=== PATIENT | male | born 1975 | race Caucasian/White ===

== ENCOUNTER 2017-07-11 18:38 | Emergency (ER) | payer SELFPAY ==
[2017-07-11 18:42] VITALS: BP 139/91; BMI 19.6
--- NOTE | 2017-07-11 19:29 | DR.GENAD ---
HPI - PCP Primary Care Physician: SUZIE - Complaint/Symptoms Chief Complaint Doctors Comments: History as stated. Chief Complaint:: FEELS LIKE THERE IS SOMETHING IN MY EAR. "FEELS LIKE FLUID AND WEIRD FEELING" - Source History Provided: Patient - Mode of Arrival Mode of Arrival: Ambulatory - Timing Onset of Chief Complaint: 07/09/17 PMH - PMH Past Medical History: No Past Medical History: GERD Past Surgical History: Yes Surgical History: Ortho Surgery - Family History History of Family Medical Conditions: Yes Family Medical History: Diabetes Mellitus, Cancer, Coronary Artery Disease, Hypertension - Social History Does patient currently use any type of tobacco product: Yes Have you used tobacco products in the last 12 months: Yes Type of Tobacco Use: Cigarettes Does any household member use tobacco: No Alcohol Use: None Do you use any recreational Drugs:: Yes (WEED) Lives With: Alone Lives Where: Home - infectious screening In the last 2 months have you had wt loss of >10#?: NO Have you had fever, night sweats or hemotysis?: No Have you traveled outside the country in the last 6 months?: No Isolation: Standard ROS - Review of Systems Eyes: No Symptoms Reported ENTM: See HPI Respiratoy: No Symptoms Reported Cardiovascular: No Symptoms Reported Gastrointestinal/Abdominal: No Symptoms Reported Genitourinary: No Symptoms Reported Neurological: No Symptoms Reported Musculoskeletal: No Symptoms Reported Integumentary: No Symptoms Reported Hematologic/Lymphatic: No Symptoms Reported Endocrine: No Symptoms Reported Psychiatric: No Symptoms Reported All Other Systems: Reviewed and Negative PE - Vital Signs Vitals: Temperature 99.1 F Pulse Rate 98 Respiratory Rate 20 Blood Pressure [Right Arm] 132/89 Blood Pressure [Left Arm] 136/72 Blood Pressure 139/91 O2 Sat by Pulse Oximetry 99 - General Limitations: No Limitations General Appearance: Alert, In No Apparent Distress - Head Head Exam: Normal Inspection, Atraumatic - Eyes Eye exam: Normal Appearance, PERRL, EOMI - ENT ENT Exam: Normal Exam External Ear Exam: Normal External Inspection TM/Canal Exam: Bilateral Normal Nose Exam: Normal Nose Exam Mouth Exam: Normal Inspection Throat Exam: Normal Inspection - Neck Neck Exam: Normal Inspection, Full ROM - Chest Chest Inspection: Normal Inspection - Respiratory Respiratory Exam: Normal Lung Sounds Bilat Respiratory Exam: Bilateral Clear to Auscultation - Cardiovascular Cardiovascular Exam: Regular Rate, Normal Rhythm - Abdominal Exam Abdominal Exam: Normal Inspection, Normal Bowel Sounds Abdominal Tenderness: negative: RUQ, RLQ, LUQ, LLQ, Epigastrium, Suprapubic, Diffuse, Mild, Moderate, Severe, Other - Extremities Extremities Exam: Normal Inspection, Full ROM - Back Back Exam: Normal Inspection, Full ROM - Neurologic Neurological Exam: Alert, Oriented X3, CN II-XII Intact - Psychiatric Psychiatric Exam: Normal Affect, Normal Mood - Skin Skin Exam: Warm, Dry - Diagnosis Discharge Problem: Negative otitis media/Externa - Discharge Plan Condition: Stable - Follow ups/Referrals Follow ups/Referrals: Hayden Kinsey [Primary Care Provider] - 3 days - Instructions
== END 2017-07-11 19:35 | disposition home or self-care (01) ==
LOC: ER 18:44
DX: H92.09 Otalgia, unspecified ear (principal)
CPT/HCPCS: 99281; 99282

== ENCOUNTER 2017-07-19 11:05 | Emergency (ER) | payer SELFPAY ==
[2017-07-19 11:10] VITALS: BP 127/76; BMI 19.6
--- NOTE | 2017-07-19 11:36 | DR.GENAD ---
HPI - PCP Primary Care Physician: CINDY - Complaint/Symptoms Chief Complaint Doctors Comments: History as stated. Patient states that he thinks his mom had a device implanted so that she can track him. She has been trying to get to go to rehab for some times now. He has been using methamphetamine for 4 years. He denies being homocidal or suicidal. He stated that he needed to get to the bottom of this.and [facility]. Chief Complaint:: PT. STATES "I'VE GOT A BUG IN MY ASS AND I'VE GOT TO GET IT OUT." "IT'S A TRACKING DEVICE. IT WAS IN MY STOMACH." PT. STATES HE SWALLOWED IT SUPPOSEDELY A WEEK AGO. HE WAS TOLD IT WAS A GOLD MARBLE PER HIS FRIENDS. HE STATES IT HAD TO BE IN HIS FOOD AND HIS MAMA DONE IT. - Source History Provided: Patient - Mode of Arrival Mode of Arrival: Ambulatory - Timing Onset of Chief Complaint: 07/18/17 PMH - PMH Past Medical History: Yes Past Medical History: GERD Past Surgical History: Yes Surgical History: Ortho Surgery - Family History History of Family Medical Conditions: Yes Family Medical History: Diabetes Mellitus, Cancer, Coronary Artery Disease, Hypertension - Social History Does patient currently use any type of tobacco product: Yes Have you used tobacco products in the last 12 months: Yes Type of Tobacco Use: Cigarettes Does any household member use tobacco: No Alcohol Use: None Do you use any recreational Drugs:: Yes (METH AND MARIJUANA) Lives With: Alone Lives Where: Home - infectious screening In the last 2 months have you had wt loss of >10#?: NO Have you had fever, night sweats or hemotysis?: No Have you traveled outside the country in the last 6 months?: No Isolation: Standard ROS - Review of Systems Eyes: No Symptoms Reported ENTM: No Symptoms Reported Respiratoy: No Symptoms Reported Cardiovascular: No Symptoms Reported Gastrointestinal/Abdominal: No Symptoms Reported Genitourinary: No Symptoms Reported Neurological: No Symptoms Reported Musculoskeletal: No Symptoms Reported Integumentary: No Symptoms Reported Hematologic/Lymphatic: No Symptoms Reported Endocrine: No Symptoms Reported Psychiatric: No Symptoms Reported All Other Systems: Reviewed and Negative PE - Vital Signs Vitals: Temperature 98.0 F Pulse Rate 95 Respiratory Rate 20 Blood Pressure [Right Arm] 132/89 Blood Pressure [Left Arm] 136/72 Blood Pressure 127/76 O2 Sat by Pulse Oximetry 98 - General Limitations: No Limitations General Appearance: In No Apparent Distress - Head Head Exam: Normal Inspection, Atraumatic - Eyes Eye exam: Normal Appearance, PERRL, EOMI - ENT ENT Exam: Normal Exam External Ear Exam: Normal External Inspection TM/Canal Exam: Bilateral Normal Nose Exam: Normal Nose Exam Mouth Exam: Normal Inspection Throat Exam: Normal Inspection - Neck Neck Exam: Normal Inspection - Chest Chest Inspection: Normal Inspection - Respiratory Respiratory Exam: Normal Lung Sounds Bilat Respiratory Exam: Bilateral Clear to Auscultation - Cardiovascular Cardiovascular Exam: Regular Rate - Abdominal Exam Abdominal Exam: Normal Inspection Abdominal Tenderness: negative: RUQ, RLQ, LUQ, LLQ, Epigastrium, Suprapubic, Diffuse, Mild, Moderate, Severe, Other - Extremities Extremities Exam: Normal Inspection - Back Back Exam: Normal Inspection - Neurologic Neurological Exam: Alert, Oriented X3, CN II-XII Intact - Psychiatric Psychiatric Exam: Normal Affect, Depressed - Skin Skin Exam: Warm, Dry, Intact Course - Treatment Treatment: Patient agreed to go to [facility] for help concerning his present problem. - Diagnosis Discharge Problem: Delusional disorder - Discharge Plan Condition: Stable - Follow ups/Referrals Follow ups/Referrals: Hayden Kinsey [Primary Care Provider] - 3 days - Instructions
== END 2017-07-19 11:48 | disposition home or self-care (01) ==
LOC: ER 11:16
DX: F22 Delusional disorders (principal)
CPT/HCPCS: 99281; 99282